=== PATIENT | male | born 1970 | race Caucasian/White ===

== ENCOUNTER 2020-12-26 02:56 | Inpatient (IN) | payer BC ==
--- NOTE | 2020-12-26 03:18 | ED ---
Chest Pain HPI - General Chief Complaint: Chest Pain Stated Complaint: Chest pain Time Seen by Provider: 12/26/20 02:59 Source: patient, RN notes reviewed, old records reviewed Mode of arrival: ambulatory Limitations: no limitations - History of Present Illness Initial Comments: This is a 50-year-old male presents to the ER for evaluation patient with high blood pressure high cholesterol family history of heart disease. Patient has onset of chest pain tonight. Woke up slightly shortness of breath and swelling. Patient has had multiple episodes the last week of the same. Patient did have a stress test 5 years ago. Which has been normal. Patient is recent travel history or sick contacts. No fevers no cough no congestion patient does still c ontinue with chest MD Complaint: chest pain - Related Data Allergies Allergy/AdvReac Type Severity Reaction Status Date / Time No Known Allergies Allergy Verified 12/26/20 03:04 Review of Systems ROS Statement: Those systems with pertinent positive or pertinent negative responses have been documented in the HPI. ROS Other: All systems not noted in ROS Statement are negative. EKG Findings - EKG Comments: EKG Findings:: EKG shows normal sinus rhythm rate of 73 UT 140 QRS 96 QTC 374 Past Medical History Past Medical History: No Reported History History of Any Multi-Drug Resistant Organisms: None Reported Past Surgical History: Cholecystectomy Past Psychological History: No Psychological Hx Reported Smoking Status: Current every day smoker Past Alcohol Use History: Occasional Past Drug Use History: None Reported General Exam Limitations: no limitations General appearance: alert, in no apparent distress, anxious Head exam: Present: atraumatic, normocephalic, normal inspection Eye exam: Present: normal appearance, PERRL, EOMI. Absent: scleral icterus, conjunctival injection, periorbital swelling ENT exam: Present: normal exam, mucous membranes moist Neck exam: Present: normal inspection. Absent: tenderness, meningismus, l ymphadenopathy Respiratory exam: Present: normal lung sounds bilaterally. Absent: respiratory distress, wheezes, rales, rhonchi, stridor Cardiovascular Exam: Present: regular rate, normal rhythm, normal heart sounds. Absent: systolic murmur, diastolic murmur, rubs, gallop, clicks GI/Abdominal exam: Present: soft, normal bowel sounds. Absent: distended, tenderness, guarding, rebound, rigid Extremities exam: Present: normal inspection, full ROM, normal capillary refill. Absent: tenderness, pedal edema, joint swelling, calf tenderness Back exam: Present: normal inspection Neurological exam: Present: alert, oriented X3, CN II-XII intact Psychiatric exam: Present: normal affect, normal mood Skin exam: Present: warm, dry, intact, normal color. Absent: rash Course Vital Signs 12/26/20 12/26/20 02:58 04:07 Temperature 98.2 F Pulse Rate 74 75 Respiratory 22 18 Rate Blood Pressure 168/108 152/98 O2 Sat by Pulse 97 98 Oximetry - Reevaluation(s) Reevaluation #1: 12/26/20 04:45 Medical records reviewed Reevaluation #2: 12/26/20 04:45 Chest pain remains, patient has no real resolution of symptoms Reevaluation #3: 12/26/20 04:45 Spoke with patient regarding findings, questions answered - Consultations Consultation #1: Spoke with [facility] were agrees to admit this patient Chest Pain MDM - MDM 50 male to the ER for evaluation patient Dese for evaluation of elevated troponin with non-ST elevated SC. Patient be admitted for cardiology to evaluate treat Critical Care Time Critical Care Time: Yes Total Critical Care Time: 31 Disposition Clinical Impression: Chest pain, Acute non-ST elevation myocardial infarction (NSTEMI) Disposition: ADMITTED IP TO THIS HOSP Condition: Serious Is patient prescribed a controlled substance at d/c from ED?: No Referrals: Leighton Fink III, MD [Primary Care Provider] - 1-2 days
[2020-12-26 03:42] LABS: Basophils # (A) 0.1 k/uL (0-0.2); Basophils % (A) 1 %; Eosinophils # (A) 0.3 k/uL (0-0.7); Eosinophils % (A) 3 %; HCT 46.9 % (39.0-53.0); HGB 16.2 gm/dL (13.0-17.5); Lymphocytes # (A) 2.4 k/uL (1.0-4.8); Lymphocytes % (A) 22 %; MCHC 34.6 g/dL (31.0-37.0); MCV 92.5 fL (80.0-100.0); Mean Platelet Volume 6.7; Monocytes # (A) 0.5 k/uL (0-1.0); Monocytes % (A) 5 %; Neutrophils # (A) 7.5 k/uL (1.3-7.7); Neutrophils % (A) 69 %; Platelet Count 339 k/uL (150-450); RBC 5.07 m/uL (4.30-5.90); RDW 13.3 % (11.5-15.5); WBC 10.8 k/uL (3.8-10.6)
[2020-12-26 03:52] LABS: ALT 34 U/L (4-49); AST 28 U/L (17-59); African American GFR (CKD) >90 (>60 ml/min/1.73 sqM); Albumin 4.2 g/dL (3.5-5.0); Alkaline Phosphatase 50 U/L (38-126); Anion Gap 8 mmol/L; Blood Urea Nitrogen 16 mg/dL (9-20); Calcium 9.8 mg/dL (8.4-10.2); Carbon Dioxide 25 mmol/L (22-30); Chloride 104 mmol/L (98-107); Glucose 118 mg/dL (74-99); Lipase 126 U/L (23-300); Magnesium 1.9 mg/dL (1.6-2.3); Non-African American GFR(CKD) >90 (>60 ml/min/1.73 sqM); Potassium 4.6 mmol/L (3.5-5.1); Sodium 137 mmol/L (137-145); Total Bilirubin 0.5 mg/dL (0.2-1.3)
[2020-12-26 04:17] LABS: D-Dimer 0.21 mg/L FEU (<0.60); INR 0.9 (<1.2); Partial Thromboplastin Time 23.6 sec (22.0-30.0); Prothrombin Time 10.1 sec (9.0-12.0)
--- NOTE | 2020-12-26 04:21 | XR ---
EXAM: XR Chest, 2 Views CLINICAL HISTORY: ITS.REASON XR Reason: Chest Pain TECHNIQUE: Frontal and lateral views of the chest. COMPARISON: No relevant prior studies available. FINDINGS: Lungs: Unremarkable. No consolidation. Pleural space: Unremarkable. No pneumothorax. Heart: Unremarkable. No cardiomegaly. Mediastinum: Unremarkable. 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 Mild osteophytosis throughout the mid to lower thoracic spine. IMPRESSION: No acute findings in the chest.
[2020-12-26] MEDS ORDERED: HEPARIN SODIUM,PORCINE 5,000 UNIT/ML 1 ML VIAL IV ONE (04:41)
[2020-12-26] MEDS ORDERED: HEPARIN SODIUM,PORCINE 5,000 UNIT/ML 1 ML VIAL IV PRN (04:41)
[2020-12-26] MEDS ORDERED: NITROGLYCERIN SL TABS 0.4 MG TAB SUBLINGUAL PRN ×3 (04:41→14:01)
[2020-12-26] MEDS ORDERED: ASPIRIN 81 MG PO STA (04:41)
[2020-12-26] MEDS ORDERED: MORPHINE SULFATE 4 MG/ML SYRINGE IV PRN (04:41)
[2020-12-26] MEDS ORDERED: HEPARIN SOD,PORK IN 0.45% NACL 25,000 UNIT in 0.45% NACL 1 250ML.BAG IV SCH (04:45)
[2020-12-26 06:21] LABS: Mean Platelet Volume 6.8; Platelet Count 348 k/uL (150-450)
[2020-12-26] MEDS ORDERED: SODIUM CHLORIDE 0.9% 1,000 ML in EMPTY BAG 1 BAG IV ONE (08:15)
[2020-12-26] MEDS ORDERED: ALPRAZolam 0.25 MG TAB PO PRN (08:15)
[2020-12-26] MEDS ORDERED: ASPIRIN 325 MG TAB PO STA (08:15)
[2020-12-26] MEDS ORDERED: ALPRAZolam 0.5 MG TAB PO PRN (08:15)
[2020-12-26] MEDS ORDERED: ATORVASTATIN 80 MG TAB PO STA (08:15)
[2020-12-26 08:35] LABS: Cholesterol 303 mg/dL (<200)
[2020-12-26 09:28] LABS: Triglycerides 1163 mg/dL (<150)
[2020-12-26 09:55] LABS: HDL Cholesterol 38 mg/dL (40-60)
--- NOTE | 2020-12-26 10:07 | CONS ---
CONSULTATION Mr. tSroud is a 50-year-old male who was woken with chest discomfort radiating to the left arm, came into the emergency room to undergo further evaluation. The patient has no prior history of documented coronary artery disease, has a history of chronic tobacco use and history of hyperlipidemia, not treated at this time. He is average in his exercise tolerance. In the past he has no significant symptoms, but for the last couple weeks, he has been having some episode of chest discomfort similar to the one he had last night but the one last night lasted longer. At the time of my evaluation, he is pain-free. He denies any significant change in his breathing. No dizziness. No palpitation. No syncope. No PND, orthopnea, or peripheral edema. His coronary risk factors are remarkable for smoking. He has hyperlipidemia, nondiabetic. No document history of hypertension. His mother had a bypass in her 60s. MEDICATION: His only medication at home include Zyrtec on a p.r.n. basis. REVIEW OF SYSTEMS: RESPIRATORY SYSTEM: He has no documented history of asthma, emphysema or bronchitis. GI SYSTEM: No recent GI bleed. No peptic ulcer disease. SYSTEM: No dysuria or hematuria. NERVOUS SYSTEM: No stroke or seizure. PHYSICAL EXAMINATION: A 50-year-old male, alert, oriented, in no apparent distress. Blood pressure 137/79 with the heart rate in the 70s. HEAD: Normocephalic. EYES: Sclerae anicteric. NECK: Good carotid upstroke. No bruit. No jugular venous distention. LUNGS: Clear to auscultation. HEART: Regular rate and rhythm. S1, S2. No S3. No rub. ABDOMEN: Soft, nontender. Positive bowel sounds. No organomegaly. EXTREMITIES: No edema. Intact distal pulses. LAB DATA: Lab data revealed troponin 0.318 and 0.375. BUN and creatinine of 16 and 0.85. Potassium 4.6. Hemoglobin of 16.2, white blood cell of 10.8. EKG revealed a sinus mechanism with a normal axis and intervals and mild biphasic changes on the second EKG in the anterior leads. His chest x-ray shows no acute infiltrate. IMPRESSION: 1. Acute non ST-elevation myocardial infarction. 2. History of chronic tobacco use. 3. Hyperlipidemia. RECOMMENDATION: I have discussed with the patient the finding. I recommended proceeding with coronary angiography to assess his status and guide treatment. The rationale behind the procedure, risks and complication were discussed with the patient who is in full understanding and agreement. We will obtain echocardiogram with Doppler and depending on results of testing, further recommendation will be made. Thank you for this consult. We will follow with you. ELIZABETH / JAMILA: [id number] /
[2020-12-26] MEDS ORDERED: IV FLUID CONTINUATION 1,000 ML IV ONE (12:25)
[2020-12-26] MEDS ORDERED: HEPARIN SODIUM 1,000 UN/ML (10ML VL) ONE (12:26)
[2020-12-26] MEDS ORDERED: LIDOCAINE 1% INJ 10MG/ML (20 ML MDV) ONE (12:26)
[2020-12-26] MEDS ORDERED: VERAPAMIL 2.5 MG/ML 2 ML AMP ONE (12:26)
[2020-12-26] MEDS ORDERED: fentaNYL (PF) 50 MCG/ML 2 ML AMP ONE (12:37)
[2020-12-26] MEDS ORDERED: fentaNYL (PF) 50 MCG/ML 2 ML AMP IVP ONE (12:59)
[2020-12-26] MEDS ORDERED: LIDOCAINE 1% INJ 10MG/ML (20 ML MDV) SQ ONE (13:01)
[2020-12-26] MEDS ORDERED: VERAPAMIL SYRINGE (5 MG/10 ML) INTRAARTER ONE (13:06)
[2020-12-26] MEDS ORDERED: TICAGRELOR 90 MG TAB ONE (13:17)
[2020-12-26] MEDS ORDERED: TICAGRELOR 90 MG TAB PO ONE (13:19)
[2020-12-26] MEDS ORDERED: HEPARIN SODIUM 1,000 UN/ML (10ML VL) IV ONE (13:19)
[2020-12-26] MEDS ORDERED: IOPAMIDOL-370 125ML BTL INJ ONE (13:30)
[2020-12-26] MEDS ORDERED: IOPAMIDOL-370 100ML BTL INJ ONE ×2 (13:44→13:52)
[2020-12-26] MEDS ORDERED: HEPARIN SODIUM,PORCINE 30 ML 30 ML ONE (13:47)
[2020-12-26] MEDS ORDERED: RX INFO: IV CONTRAST WAS GIVEN 1 EACH MISC MISCELLANE PRN (14:01)
[2020-12-26] MEDS ORDERED: MAG HYDROX/AL HYDROX/SIMETH 30 ML CUP PO PRN (14:01)
[2020-12-26] MEDS ORDERED: ATROPINE SULFATE 0.1 MG/ML 10ML SYRINGE IV PRN (14:01)
[2020-12-26] MEDS ORDERED: ZOLPIDEM 5 MG TAB PO PRN (14:01)
[2020-12-26] MEDS ORDERED: SODIUM CHLORIDE 0.9% 1,000 ML IV SCH (14:15)
[2020-12-26] MEDS: METOPROLOL TARTRATE 25 MG TAB PO SCH ×2 (14:24→20:26)
--- NOTE | 2020-12-26 14:29 | CC ---
CARDIAC CATHETERIZATION REPORT Mr. Stroud is a 50-year-old male with known history of chronic tobacco use, history of hyperlipidemia, untreated, and a family history of premature coronary artery disease who presented to the emergency room with symptoms of chest discomfort radiating to the left arm with mild T wave changes anteriorly. In view of that, recommendation was made regarding cardiac catheterization. The procedure, risks, and complications were discussed with the patient who is in full understanding and agreement. 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 Using Xylocaine anesthesia and Seldinger technique, a 6-Moroccan sheath was introduced in the right radial artery. Selective right and left coronary angiography were performed using 5- Moroccan 3.5 bend right and left Jose Antonio catheter. Multiple views of the coronary artery including hemiaxial views were obtained. Following that, the right Jose Antonio was used to cross the aortic valve and left ventricular end-diastolic pressure was calculated. Following that, catheter was removed. Images were reviewed. FINDINGS: LEFT MAIN: This is a short size vessel, bifurcating into left circumflex, left anterior descending artery. Left main coronary artery has no evidence of high-grade stenosis. LEFT ANTERIOR DESCENDING ARTERY: This is a large-sized vessel reaching to the apex. Tapers down in distal third, gives rise to 3 diagonal branches. The second diagonal branch has a 70% to 80% tubular lesion. After the takeoff of the second diagonal branch, there was long area of stenosis with area of 99% with haziness prior to the takeoff of the third diagonal branches. The vessel beyond that has intimal disease, but no evidence of high-grade stenosis. LEFT CIRCUMFLEX: This is a nondominant vessel, large in caliber giving rise to a large first obtuse marginal branch that has about 30% to 40% plaque proximally. Beyond that there is a second obtuse marginal branch that appears to be chronic occluded, but there is ipsilateral collaterals to the distal obtuse marginal branch that appears to be small in caliber. RIGHT CORONARY ARTERY: This is a large-sized vessel dominant bifurcating distally PDA and posterolateral segment and branches. The right coronary artery has mild intimal disease without any evidence of high-grade stenosis. There is what appears to be occluded distal PDA. There is collateral from the right coronary artery toward the distal left circumflex. LEFT VENTRICULOGRAM: Left ventriculogram is not performed. HEMODYNAMICS: There was no gradient across the aortic valve. The left ventricular end- diastolic pressure was 12-16 mmHg. CONCLUSION: 1. Critical stenosis involving the mid left anterior descending artery. 2. Significant stenosis in the second diagonal branch. 3. 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 RECOMMENDATION: In view of finding anatomy, I recommend proceeding with angioplasty and stenting of the LAD and the diagonal branch. The procedure as well as the risks and the complications were discussed with the patient who is in full understanding and agreement. MMODL / IJN: [id number] / RISSA
--- NOTE | 2020-12-26 14:44 | PTCA ---
PERCUTANEOUSTRANS CORORONARY ANGIOGRAPHY Mr. Stroud is a 50-year-old male who presented with evidence of non STEMI underwent cardiac catheterization was found to have critical stenosis involving the LAD and the diagonal branch. In view of that, recommendation regarding angioplasty and stenting, the procedures, risks, and complications were discussed with the patient who is in full understanding and agreement. PROCEDURE: A 6-Thai FL 3.5 guiding catheter introduced in the system. After cannulating the left main, a 0.014 balanced medium weight J-wire was advanced across the lesion positioned distal LAD. Subsequently a 2.5 x 12 mm NC Emerge balloon was advanced and one inflation at 10 atmospheres was done. Following that, the balloon was removed and a 3.0 x 23 mm Xience Kerry stent was advanced, deployed and post dilated at 16 atmospheres. Following that, the balloon was withdrawn back in the guiding catheter and the wire was withdrawn and readvanced into the second diagonal branch and subsequently a 2.25 x 23 mm Xience Kerry stent was advanced, deployed and post dilated at 16 atmospheres. After the last inflation, after appropriate wait, the balloon and the guidewire were withdrawn back in the guiding catheter. Images were obtained and repeated. Those images reveal stable successful stenting. At that point, the guiding catheter, the balloon, and the guidewire removed and the diagnostic right Jose Antonio catheter was reintroduced and images of the right coronary artery were performed. Following that, catheter and sheath were removed. Hemostasis was obtained with deployment of a TR band. There was no immediate complication. Patient was returned to his room in stable condition. Of note, the patient had chest discomfort and EKG changes with the inflation that resolved at the end of the procedure. He received a 8000 units of intravenous heparin and ACT was followed. He also received intra-arterial verapamil and oral loading dose of Brilinta. RESULTS: 1. Successful stenting of the mid left anterior descending artery with reduction of stenosis from 99% to 0%. 2. Successful stenting of the second diagonal branch with reduction of stenosis from 80% to 0%. 3. The appearance of possible occlusion of the very distal right coronary artery that appears to be small in caliber. RECOMMENDATION: Patient be continued on aspirin, Brilinta, beta blockers, FELICITY inhibitor and statin. The importance of dual antiplatelet treatment was discussed with the patient and his family and they are in full understanding and agreement. Duration of the sedation is 52 minutes. MMODL / IJN: [id number] /
--- NOTE | 2020-12-26 14:50 | LTR ---
December 26, 2020 Re: Marcelo Stroud Dear Dr. Fink: I had the opportunity to perform cardiac catheterization and coronary angioplasty on Mr. Stroud at [facility] on the 26 of December and a full copy of the procedure note will be forwarded to you. In brief, he was found to have significant disease involving the LAD and second diagonal branch and underwent stenting of those vessels. At the same time, he was found to have a totally occluded distal left circumflex and the appearance of occlusion of the distal right coronary artery that appears to be chronic. At this time I will maximize his medical therapy and depending on his progress, further recommendation will be made. Thank you again for allowing me the opportunity to participate in his care. Please feel free to call for any questions. Sincerely yours, MD ELIZABETH Heller / JAMILA: [id number] /
[2020-12-26 15:02] VITALS: BMI 33.9
--- NOTE | 2020-12-26 15:25 | P.HPIM ---
History of Present Illness 50-year-old pleasant male came in with complaints of chest pressure-like sensation radiating to the left arm found to have elevated troponin and EKG changes because of which patient underwent cardiac catheterization was started on IV heparin.. Patient is found to have stenosis in LAD and second diagonal branch. and disease stents to those 2 vessels. Patient does smoke about half pack per day does have family history of coronary artery disease. Review of Systems REVIEW OF SYSTEMS: CONSTITUTIONAL: No fever, no malaise, no fatigue. HEENT: No recent visual problems or hearing problems. Denied any sore throat. CARDIOVASCULAR: No orthopnea, PND, no palpitations, no syncope. PULMONARY: No shortness of breath, no cough, no hemoptysis. GASTROINTESTINAL: No diarrhea, no nausea, no vomiting, no abdominal pain. NEUROLOGICAL: No headaches, no weakness, no numbness. HEMATOLOGICAL: Denies any bleeding or petechiae. GENITOURINARY: Denies any burning micturition, frequency, or urgency. MUSCULOSKELETAL/RHEUMATOLOGICAL: Denies any joint pain, swelling, or any muscle pain. ENDOCRINE: Denies any polyuria or polydipsia. The rest of the 14-point review of systems is negative. Past Medical History Past Medical History: Hearing Disorder / Deafness, Hyperlipidemia Additional Past Medical History / Comment(s): Sinusitis, L ear tinnitis, occasional back pain/sciatica History of Any Multi-Drug Resistant Organisms: None Reported Past Surgical History: Cholecystectomy Additional Past Surgical History / Comment(s): Colonoscopy Smoking Status: Current every day smoker - Past Family History Father Additional Family Medical History / Comment(s): Heart problems. Father is living. Mother Family Medical History: Coronary Artery Disease (CAD) Additional Family Medical History / Comment(s): Mother had CABG. She is living Medications and Allergies Home Medications Medication Instructions Recorded Confirmed Type Cetirizine HCl [Zyrtec] 10 mg PO DAILY 12/26/20 12/26/20 History Ticagrelor [Brilinta] 90 mg PO BID #60 tab 12/26/20 Rx Allergies Allergy/AdvReac Type Severity Reaction Status Date / Time No Known Allergies Allergy Verified 12/26/20 06:13 Physical Exam Vitals: Vital Signs Temp Pulse Resp BP Pulse Ox 12/26/20 12:00 98.0 F 72 18 128/82 99 12/26/20 10:00 74 18 131/76 99 12/26/20 09:00 77 18 122/77 100 12/26/20 06:30 76 18 137/79 97 12/26/20 05:13 74 18 136/92 96 12/26/20 04:07 75 18 152/98 98 12/26/20 02:58 98.2 F 74 22 168/108 97 Intake and Output 12/26/20 12/26/20 12/26/20 06:59 14:59 22:59 Intake Total 640 Balance 640 Intake: IV 400 Oral 240 Other: Weight 113.398 kg 113.398 kg PHYSICAL EXAMINATION: GENERAL: The patient is alert and oriented x3, not in any acute distress. Well developed, well nourished. HEENT: Pupils are round and equally reacting to light. EOMI. No scleral icterus. No conjunctival pallor. Normocephalic, atraumatic. No pharyngeal erythema. No thyromegaly. CARDIOVASCULAR: S1 and S2 present. No murmurs, rubs, or gallops. PULMONARY: Chest is clear to auscultation, no wheezing or crackles. ABDOMEN: Soft, nontender, nondistended, normoactive bowel sounds. No palpable organomegaly. MUSCULOSKELETAL: No joint swelling or deformity. EXTREMITIES: No cyanosis, clubbing, or pedal edema. NEUROLOGICAL: Gross neurological examination did not reveal any focal deficits. SKIN: No rashes. Results CBC & Chem 7: 12/26/20 05:38 12/26/20 03:31 Labs: Abnormal Lab Results - Last 24 Hours (Table) 12/26/20 12/26/20 12/26/20 Range/Units 03:31 03:31 03:31 WBC 10.8 H (3.8-10.6) k/uL APTT (22.0-30.0) sec Glucose 118 H (74-99) mg/dL Troponin I 0.318 H* (0.000-0.034) ng/mL Triglycerides (<150) mg/dL Cholesterol (<200) mg/dL HDL Cholesterol (40-60) mg/dL 12/26/20 12/26/20 12/26/20 Range/Units 05:38 05:38 05:53 WBC (3.8-10.6) k/uL APTT 59.8 H (22.0-30.0) sec Glucose (74-99) mg/dL Troponin I 0.375 H* (0.000-0.034) ng/mL Triglycerides 1163 H (<150) mg/dL Cholesterol 303 H (<200) mg/dL HDL Cholesterol 38 L (40-60) mg/dL 12/26/20 Range/Units 10:52 WBC (3.8-10.6) k/uL APTT (22.0-30.0) sec Glucose (74-99) mg/dL Troponin I 1.720 H* (0.000-0.034) ng/mL Triglycerides (<150) mg/dL Cholesterol (<200) mg/dL HDL Cholesterol (40-60) mg/dL Thrombosis Risk Factor Assmnt - Choose All That Apply Any of the Below Risk Factors Present?: Yes Each Factor Represents 1 point: Age 41-60 years, Obesity (BMI >25) Other Risk Factors: No Other congenital or acquired thrombophilia - If yes, enter type in comment: No Thrombosis Risk Factor Assessment Total Risk Factor Score: 2 Thrombosis Risk Factor Assessment Level: Low Risk Assessment and Plan Plan: -Acute non-ST elevation myocardial infarction: Patient is status post a cardiac catheterization and the stenting of LAD and the second diagonal. Continue dual antiplatelet therapy statin and beta yenny echocardiogram will be obtained -Hyperlipidemia Hypertension -Nicotine use: Counseling was provided -Leukocytosis secondary to acute myocardial infarction
--- NOTE | 2020-12-26 17:41 | ECHOF ---
Referral Reason:nstemi MEASUREMENTS -------- HEIGHT: 182.9 cm WEIGHT: 113.4 kg BP: 127/77 RVIDd: 3.6 cm (< 3.3) IVSd: 1.2 cm (0.6 - 1.1) LVIDd: 4.0 cm (3.9 - 5.3) LVPWd: 1.2 cm (0.6 - 1.1) IVSs: 1.7 cm LVIDs: 2.7 cm LVPWs: 1.9 cm LA Diam: 3.5 cm (2.7 - 3.8) LAESV Index (A-L): 19.51 ml/m Ao Diam: 3.4 cm (2.0 - 3.7) AV Cusp: 2.5 cm (1.5 - 2.6) MV EXCURSION: 25.336 mm (> 18.000) MV EF SLOPE: 139 mm/s (70 - 150) EPSS: 0.7 cm MV E Toan: 0.68 m/s MV DecT: 203 ms MV A Toan: 0.78 m/s MV E/A Ratio: 0.87 RAP: 5.00 mmHg RVSP: 16.77 mmHg FINDINGS -------- Sinus rhythm. This was a technically adequate study. The left ventricular size is normal. There is borderline concentric left ventricular hypertrophy. Overall left ventricular systolic function is normal with, an EF between 60 - 65 %. The right ventricle is mildly enlarged. Normal LA size by volume 22+/-6 ml/m2. The right atrium is normal in size. Interatrial and interventricular septum intact. The aortic valve is trileaflet and appears structurally normal. The mitral valve is normal. Mild tricuspid regurgitation present. Right ventricular systolic pressure is normal at < 35 mmHg. There is no pulmonic regurgitation present. The aortic root size is normal. Normal inferior vena cava with normal inspiratory collapse consistent with estimated right atrial pre ssure of 5 mmHg. There is no pericardial effusion. CONCLUSIONS -------- 1. The left ventricular size is normal. 2. There is borderline concentric left ventricular hypertrophy. 3. Overall left ventricular systolic function is normal with, an EF between 60 - 65 %. 4. The right ventricle is mildly enlarged. 5. Mild tricuspid regurgitation present. 6. There is no pericardial effusion. ASSURANCE MANAGER INSURANCE: Marylin Matta RDCS
[2020-12-26] MEDS: TICAGRELOR 90 MG TAB PO SCH (20:26)
[2020-12-27] MEDS ORDERED: HEPARIN SODIUM,PORCINE 2,500 UNIT in SODIUM CHLORIDE 0.9% 250 ML IRRIGATION PRN (07:00)
[2020-12-27] MEDS ORDERED: HEPARIN SODIUM,PORCINE 10,000 UNIT in SODIUM CHLORIDE 0.9% 1,000 ML IRRIGATION PRN (07:00)
[2020-12-27 07:41] LABS: Mean Platelet Volume 6.5; Platelet Count 340 k/uL (150-450)
[2020-12-27 08:24] LABS: African American GFR (CKD) >90 (>60 ml/min/1.73 sqM); Anion Gap 9 mmol/L; Blood Urea Nitrogen 14 mg/dL (9-20); Calcium 9.6 mg/dL (8.4-10.2); Carbon Dioxide 26 mmol/L (22-30); Chloride 102 mmol/L (98-107); Glucose 100 mg/dL (74-99); Non-African American GFR(CKD) >90 (>60 ml/min/1.73 sqM); Potassium 4.4 mmol/L (3.5-5.1); Sodium 137 mmol/L (137-145)
[2020-12-27] MEDS ORDERED: ASPIRIN 325 MG TAB PO SCH (09:00)
[2020-12-27] MEDS: lisinopriL 5 MG TAB PO SCH (09:26)
[2020-12-27] MEDS: ASPIRIN 81 MG PO SCH (09:26)
[2020-12-27] MEDS: TICAGRELOR 90 MG TAB PO SCH ×2 (09:26→20:59)
[2020-12-27] MEDS: METOPROLOL TARTRATE 25 MG TAB PO SCH ×2 (09:26→20:59)
[2020-12-27] MEDS: ATORVASTATIN 80 MG TAB PO SCH (09:26)
--- NOTE | 2020-12-27 12:38 | P.PN ---
Subjective Progress Note Date: 12/27/20 50-year-old pleasant male came in with complaints of chest pressure-like sensation radiating to the left arm found to have elevated troponin and EKG changes because of which patient underwent cardiac catheterization was started on IV heparin.. Patient is found to have stenosis in LAD and second diagonal b ranch. and disease stents to those 2 vessels. Patient does smoke about half pack per day does have family history of coronary artery disease. 12/27/2020 Patient seen up ambulating in hallway, tolerating activity. Denies chest pain, palpitation or shortness of breath. Reports he is feeling better, anxious to go home although he understands he needs is in the hospital and more night. Review of Systems REVIEW OF SYSTEMS: CONSTITUTIONAL: No fever, no malaise, no fatigue. CARDIOVASCULAR: No orthopnea, PND, no palpitations, no syncope. PULMONARY: No shortness of breath, no cough, no hemoptysis. GASTROINTESTINAL: No diarrhea, no nausea, no vomiting, no abdominal pain. GENITOURINARY: Denies any burning micturition, frequency, or urgency. Objective - Vital Signs Vital signs: Vital Signs Temp 98.3 F 12/27/20 04:00 Pulse 70 12/27/20 04:00 Resp 18 12/27/20 04:00 BP 118/60 12/27/20 04:00 Pulse Ox 98 12/27/20 04:00 Intake & Output 12/26/20 12/27/20 12/27/20 18:59 06:59 18:59 Intake Total 880 Balance 880 Weight 113.398 kg 112.6 kg Intake: IV 400 Oral 480 Other: Voiding Method Toilet Toilet # Voids 1 - Exam GENERAL: The patient is alert and oriented x3, not in any acute distress. Well developed, well nourished. HEENT: Pupils are round and equally reacting to light. EOMI. No scleral icterus. No conjunctival pallor. Normocephalic, atraumatic. No pharyngeal erythema. No thyromegaly. CARDIOVASCULAR: S1 and S2 present. No murmurs, rubs, or gallops. PULMONARY: Chest is clear to auscultation, no wheezing or crackles. ABDOMEN: Soft, nontender, nondistended, normoactive bowel sounds. No palpable organomegaly. MUSCULOSKELETAL: No joint swelling or deformity. EXTREMITIES: No cyanosis, clubbing, or pedal edema. NEUROLOGICAL: Gross neurological examination did not reveal any focal deficits. SKIN: No rashes. - Labs CBC & Chem 7: 12/27/20 06:30 12/27/20 06:30 Labs: Abnormal Lab Results - Last 24 Hours (Table) 12/27/20 Range/Units 06:30 Glucose 100 H (74-99) mg/dL Assessment and Plan Assessment: -Acute non-ST elevation myocardial infarction: Patient is status post a cardiac catheterization and the stenting of LAD and the second diagonal. Continue dual antiplatelet therapy statin and beta yenny. Preserved LV function on 2-D echocardiogram EF 60-65% -Hyperlipidemi: maintained statin therapy: -Hypertension -Nicotine use: Counseling was provided -Leukocytosis secondary to acute myocardial infarction
[2020-12-28 03:58] VITALS: TEMP 98.2
[2020-12-28 07:39] LABS: Mean Platelet Volume 6.4; Platelet Count 307 k/uL (150-450)
[2020-12-28] MEDS: lisinopriL 5 MG TAB PO SCH (08:40)
[2020-12-28] MEDS: ATORVASTATIN 80 MG TAB PO SCH (08:41)
[2020-12-28] MEDS: METOPROLOL TARTRATE 25 MG TAB PO SCH (08:41)
[2020-12-28] MEDS: TICAGRELOR 90 MG TAB PO SCH (08:41)
[2020-12-28] MEDS: ASPIRIN 81 MG PO SCH (08:41)
--- NOTE | 2020-12-28 09:27 | PN ---
PROGRESS NOTE Mr. 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 He underwent stenting of the LAD and the diagonal branch. He is doing well this morning. Denying any chest pain. His breathing is stable. He denies any dizziness or palpitation. He denies any nausea. He continues to be on aspirin once a day, Lipitor 80 mg daily, Brilinta 90 mg twice a day, lisinopril 5 mg daily, and metoprolol tartrate 25 mg twice a day. PHYSICAL EXAMINATION: VITAL SIGNS: Blood pressure 118/60 with a heart rate in the 70s. LUNGS: Clear. HEART: Regular rate and rhythm, S1, S2. No S3. No rub. ABDOMEN: Soft, nontender. EXTREMITIES: No edema. Right radial pulse intact. LAB DATA: Lab data revealed BUN and creatinine 14 and 0.89 with a potassium of 4.4. He had an echocardiogram performed yesterday that showed an ejection fraction of 60-65% with mild tricuspid regurgitation. His EKG is consistent with anterior wall ischemia. IMPRESSION: 1. Status post non STEMI with stenting of the left anterior descending in the diagonal branch. 2. Chronically occluded distal circumflex and right posterior descending artery. 3. Hyperlipidemia. 4. Chronic tobacco use. RECOMMENDATION: We will continue present therapy. Increase his level of activity. If he is stable I would expect he should be able to be discharged home tomorrow. MMODL / NEWTONN: [id number] /
[2020-12-28 09:39] VITALS: BP 115/65; PULSE 73; RESP 20
--- NOTE | 2020-12-28 11:46 | PN ---
PROGRESS NOTE Mr. Stroud is 50-year-old male who presented with a non STEMI. Underwent cardiac catheterization and angioplasty with stenting of the LAD and the diagonal branch. He has chronically occluded distal left circumflex and right coronary artery. He is doing well this morning. Ambulating without difficulty. Denying any chest pain. Denies any dizziness or palpitation. Denies any nausea. He feels stronger. He continues to be on aspirin once a day, Lipitor 80 mg daily, lisinopril 5 mg daily, metoprolol tartrate 25 mg twice a day, Brilinta 90 mg twice a day. PHYSICAL EXAMINATION: Blood pressure 115/60 with a heart rate in the 70s. LUNGS: Clear. HEART: Regular rate and rhythm S1, S2. No S3. No rub. ABDOMEN: Soft and nontender. EXTREMITIES: No edema. IMPRESSION: 1. Status post non STEMI. 2. Hyperlipidemia. 3. Chronic tobacco use. RECOMMENDATION: Patient should be able to be discharged home today and followed as an outpatient. MMODL / IJN: [id number] /
--- NOTE | 2020-12-28 13:15 | P.DS ---
Providers Date of admission: 12/26/20 10:57 Attending physician: Luzmaria Glass Consults: 12/26/20 04:41 Consult Physician Urgent Consulting Provider: Kareen Virk Consult Reason/Comments: nstemi Do you want consulting provider notified?: Yes 12/26/20 14:01 Consult Physician Routine Consulting Provider: [facility] Consult Reason/Comments: Post Interventional patient Do you want consulting provider notified?: Already Contacted [facility] Progress Note Date: 12/27/20 50-year-old nunu male came in with complaints of chest pressure-like s ensation radiating to the left arm found to have elevated troponin and EKG changes because of which patient underwent cardiac catheterization was started on IV heparin.. Patient is found to have stenosis in LAD and second diagonal branch. and disease stents to those 2 vessels. Patient does smoke about half pack per day does have family history of coronary artery disease. 12/27/2020 Patient seen up ambulating in hallway, tolerating activity. Denies chest pain, palpitation or shortness of breath. Reports he is feeling better, anxious to go home although he understands he needs is in the hospital and more night. 12/28/2020 Nunu 50-year-old male with an STEMI U underwent cardiac catheterization and angioplasty, stenting of LAD, and diagonal branch. Again on follow-up, up ambulating and hallway, doing well, vital signs stable. 2-D echocardiogram showing preserved LV function LVEF 60-65%. Is going home today Review of Systems REVIEW OF SYSTEMS: CONSTITUTIONAL: No fever, no malaise, no fatigue. CARDIOVASCULAR: No orthopnea, PND, no palpitations, no syncope. PULMONARY: No shortness of breath, no cough, no hemoptysis. GASTROINTESTINAL: No diarrhea, no nausea, no vomiting, no abdominal pain. GENITOURINARY: Denies any burning micturition, frequency, or urgency. Exam: GENERAL: The patient is alert and oriented x3, not in any acute distress. Well developed, well nourished. HEENT: Pupils are round and equally reacting to light. EOMI. No scleral icterus. No conjunctival pallor. Normocephalic, atraumatic. No pharyngeal erythema. No thyromegaly. CARDIOVASCULAR: S1 and S2 present. No murmurs, rubs, or gallops. PULMONARY: Chest is clear to auscultation, no wheezing or crackles. ABDOMEN: Soft, nontender, nondistended, normoactive bowel sounds. No palpable organomegaly. MUSCULOSKELETAL: No joint swelling or deformity. EXTREMITIES: No cyanosis, clubbing, or pedal edema. NEUROLOGICAL: Gross neurological examination did not reveal any focal deficits. SKIN: No rashes. \ Assessment and Plan Assessment: -Acute non-ST elevation myocardial infarction: Patient is status post a cardiac catheterization and the stenting of LAD and the second diagonal. Continue dual antiplatelet therapy statin, lisinopril and beta yenny. Preserved LV function on 2-D echocardiogram EF 60-65% -Hyperlipidemi: maintained statin therapy: -Hypertension -Nicotine use: Counseling was provided -Leukocytosis: Reactive, secondary to acute myocardial infarction Patient will be discharged home, outpatient follow-up with PCP and cardiology. Patient Condition at Discharge: Serious Plan - Discharge Summary Discharge Rx Participant: No New Discharge Prescriptions: New Ticagrelor [Brilinta] 90 mg PO BID #60 tab Aspirin 81 mg PO DAILY chew Atorvastatin [Lipitor] 80 mg PO DAILY #90 tab Metoprolol Tartrate [Lopressor] 25 mg PO BID #180 tab Nitroglycerin Sl Tabs [Nitrostat] 0.4 mg SUBLINGUAL Q5M PRN #25 tab PRN Reason: Chest Pain lisinopriL [Zestril] 5 mg PO DAILY #90 tab No Action Cetirizine HCl [Zyrtec] 10 mg PO DAILY Discharge Medication List Cetirizine HCl [Zyrtec] 10 mg PO DAILY 12/26/20 [History] Ticagrelor [Brilinta] 90 mg PO BID #60 tab 12/26/20 [Rx] Aspirin 81 mg PO DAILY chew 12/28/20 [Rx] Atorvastatin [Lipitor] 80 mg PO DAILY #90 tab 12/28/20 [Rx] Metoprolol Tartrate [Lopressor] 25 mg PO BID #180 tab 12/28/20 [Rx] Nitroglycerin Sl Tabs [Nitrostat] 0.4 mg SUBLINGUAL Q5M PRN #25 tab 12/28/20 [Rx] lisinopriL [Zestril] 5 mg PO DAILY #90 tab 12/28/20 [Rx] Follow up Appointment(s)/Referral(s): Kareen Virk MD [STAFF PHYSICIAN] - 1 Week Leighton Fink III, MD [Primary Care Provider] - 3 Days Discharge Disposition: HOME SELF-CARE
== END 2020-12-28 11:54 | disposition home or self-care (01) | DRG 247 ==
LOC: EC 02:56 → 3SCARD 04:41 → OBSVTOIN 10:57 → 3SCARD 11:17
PROVIDERS: ADMIT Hospitalist; ATTEND Hospitalist
PROC: B2111ZZ Fluoroscopy of Multiple Coronary Arteries using Low Osmolar Contrast (ICD-10-PCS; principal; 2020-12-26 09:25)
PROC: 027135Z Dilation of Coronary Artery, Two Arteries with Two Drug-eluting Intraluminal Devices, Percutaneous Approach (ICD-10-PCS; principal; 2020-12-26 09:25)
PROC: 4A023N7 Measurement of Cardiac Sampling and Pressure, Left Heart, Percutaneous Approach (ICD-10-PCS; principal; 2020-12-26 09:25)
DX: I21.4 Non-ST elevation (NSTEMI) myocardial infarction (principal); I25.10 Atherosclerotic heart disease of native coronary artery without angina pectoris; I10 Essential (primary) hypertension; H91.90 Unspecified hearing loss, unspecified ear; F17.210 Nicotine dependence, cigarettes, uncomplicated; Z71.6 Tobacco abuse counseling; E78.5 Hyperlipidemia, unspecified; D72.829 Elevated white blood cell count, unspecified; E78.00 Pure hypercholesterolemia, unspecified; Z79.02 Long term (current) use of antithrombotics/antiplatelets; Z79.899 Other long term (current) drug therapy; Z82.49 Family history of ischemic heart disease and other diseases of the circulatory system; Z20.822 Contact with and (suspected) exposure to COVID-19
CPT/HCPCS: 36415; 71046; 80048; 80053; 80061; 83690; 83735; 83880; 84484; 85025; 85049; 85347; 85379; 85610; 85730; 87635; 93005; 93306; 93458; 94760; 96365; 96366; 96367; 99291

== ENCOUNTER → 2023-08-09 | Outpatient (CLI) | payer BC | LOC: 3 N SLEEP 11:02 | PROVIDERS: ATTEND Internal Medicine Critical Care Medicine | DX: G47.10 Hypersomnia, unspecified (principal) ==